=== PATIENT | male | born 1955 | race Caucasian/White ===

== ENCOUNTER 2020-03-23 10:09 | Emergency (ER) | payer SELFPAY ==
[~2020-03-23] VITALS: Ht 170.2 cm; Wt 79.0 kg
[~2020-03-23 10:09] MED LIST: OXYC1TAB7 PO
--- NOTE | 2020-03-23 10:45 | NUR ---
late entry for 03/23/2020::PT UNABLE TO RECALL HOME MEDS. PT STATED HIS MEDS ARE AT A FRIENDS HOUSE AND HE WAS TRYING TO GO GET THEM. [facility] HE PICKS UP HIS MEDICATION. [facility] AB[facility] TO [facility] FOR PT. WILL UPDATE MED REC.
--- NOTE | 2020-03-23 10:50 | NUR ---
late entry for 03/23/2020::NOTIFIED [employer] OFFICER THAT PT NEEDS HIS WHEELCHAIR FROM THE CAR HE WAS RIDING IN. PT STATED HE IS UNABLE TO WALK. OFFICER STATED HE WOULD LOOK INTO IT. [employer] HAVE NOW BROUGHT PT WHEELCHAIR FROM TRUNK OF CAR PT WAS REMOVED FROM AND ARE ASSEMBLING IT.
[2020-03-23] MEDS ORDERED: APIXABAN 5 MG TABLET ONE (10:55)
[2020-03-23] MEDS ORDERED: APIXABAN 5 MG TABLET PO ONE (11:00)
[2020-03-23 11:02] VITALS: BP 133/80
[2020-03-23] MEDS ORDERED: GABA600T7 PO (11:17)
[2020-03-23] MEDS ORDERED: LISI-170 PO (11:17)
[2020-03-23] MEDS ORDERED: [UNRECOGNIZED DRUG - CODE] TP (11:17)
[2020-03-23] MEDS ORDERED: APIX5TAB PO (11:17)
[2020-03-23] MEDS ORDERED: DICLOFENAC GEL TP (11:17)
[2020-03-23] MEDS ORDERED: DIGO125T85 PO (11:17)
[2020-03-23] MEDS ORDERED: TRAZ50TA66 PO (11:17)
[2020-03-23] MEDS ORDERED: ATOR40TA PO (11:17)
[2020-03-23] MEDS ORDERED: DULO30CA2 PO (11:17)
[2020-03-23] MEDS ORDERED: TRAZ-175 PO (11:17)
== END 2020-03-23 11:04 | disposition home or self-care (01) ==
LOC: ED 10:30
DX: G89.29 Other chronic pain (principal); Z76.0 Encounter for issue of repeat prescription; M54.9 Dorsalgia, unspecified; I10 Essential (primary) hypertension; E78.00 Pure hypercholesterolemia, unspecified; Z86.73 Personal history of transient ischemic attack (TIA), and cerebral infarction without residual deficits; Z95.0 Presence of cardiac pacemaker
CPT/HCPCS: 99283